=== PATIENT | female | born 1965 | race Caucasian/White ===

== ENCOUNTER 2016-11-07 05:45 | Inpatient (IN) | payer OTHER ==
[~2016-11-07] VITALS: Ht 160 cm; Wt 109.9 kg
[~2016-11-07 05:45] MED LIST: ADVIL,NUPRIN,M200 MG PO; ASPIR 8181 M1 PO; BACTRIM,SEPT1 TABLET PO; BISAC-EVAC10 MG PR; CELEBREX50 MG PO; CLOTRIMAZOLE15 GM TP; COUMADIN1 MG PO; COZAAR50 MG PO; CYCLOBENZAPRINE5 MG PO; DELTASONE20 M1 PO; EFFEXOR XR150 MG PO; GUAIFENESIN AC473 ML PO; HYCODAN SYRUP480 ML PO; IRON325 M1 PO; KEFLEX500 MG PO; LEVOFLOXACIN750 MG PO; LIPITOR20 MG PO; LOPRESSOR50 MG PO; MOTRIN600 MG PO; NAPROSYN500 MG PO; OXYCODONE HCL5 MG PO; OXYCONTIN10 MG PO; PREDNISONE20 MG PO; PROAIR HFA8.5 GM IH; ROBAXIN500 MG PO; ROXICODONE5 MG PO; TAMIFLU75 MG PO; TESSALON PERLE100 MG PO; TESSALON200 MG PO; TRIAMCINOLONE A15 GM TP; ULTRAM ER200 MG PO; ULTRAM50 MG PO; VALACYCLOVIR500 MG PO; VANCOMYCIN1.25 GM/25 IV; VENLAFAXINE HC150 MG PO; VENTOLIN HFA18 GM IH; ZITHROMAX Z-PA250 MG PO; ZOLOFT100 MG PO
[2016-11-07 06:45] VITALS: BP 135/63
[2016-11-07 10:58] VITALS: BP 117/67
[2016-11-07 15:59] VITALS: BP 132/77
[2016-11-07 18:24] LABS: HEMATOCRIT 43.9 % (36.0-46.0); MCV 91.8 FL (83-99)
[2016-11-07 19:53] VITALS: BP 142/70
[2016-11-07 23:54] VITALS: BP 144/50
[2016-11-08 03:53] VITALS: BP 130/70
[2016-11-08 05:40] LABS: ANION GAP 8 MEQ/L (2-14); CHLORIDE 102 MEQ/L (99-109); GFR ESTIMATE (CALCULATED) > 59 mL/min/; GLUCOSE 160 mg/dL (70-99); POTASSIUM 3.8 MEQ/L (3.7-5.4); SAMPLE HEMOLYSIS CHECK 0; SAMPLE ICTERIC CHECK 0; SAMPLE LIPEMIA CHECK 0; SODIUM 138 MEQ/L (136-147); UREA NITROGEN (BUN) 23 mg/dL (9-23)
[2016-11-08 08:06] VITALS: BP 141/79
[2016-11-08 11:35] VITALS: BP 122/64
[2016-11-08 15:34] VITALS: BP 130/67
[2016-11-08 19:59] VITALS: BP 153/76
[2016-11-08 23:48] VITALS: BP 138/75
[2016-11-09 03:40] VITALS: BP 159/73
[2016-11-09 08:09] VITALS: BP 160/70
[2016-11-09] MEDS ORDERED: OXYCODONE HCL5 MG PO (08:57)
[2016-11-09] MEDS ORDERED: XARELTO10 MG PO (08:57)
[2016-11-09 11:29] VITALS: BP 151/82
[2016-11-09 12:04] LABS: HEMATOCRIT 40.9 % (36.0-46.0); MCV 89.7 FL (83-99)
== END 2016-11-09 15:15 | DRG 470 ==
LOC: 2SOUTH 05:45 → 3WEST 10:30 → 2SOUTH 14:56 → 3WEST 11-09 15:15
PROVIDERS: Orthopaedic Surgery; Physician Assistant Surgical
PROC: 0SRD0J9 Replacement of Left Knee Joint with Synthetic Substitute, Cemented, Open Approach (ICD-10-PCS; principal; 2016-11-07)
DX: M17.12 Unilateral primary osteoarthritis, left knee (principal); Z96.651 Presence of right artificial knee joint; Z87.891 Personal history of nicotine dependence; E78.5 Hyperlipidemia, unspecified; J45.909 Unspecified asthma, uncomplicated; I10 Essential (primary) hypertension
CPT/HCPCS: 80048; 85014; 85018; 94640; 94640 76; 99202; C1713; J0690; J1885; J2250; J2405; J7050; J7120; L1820; S0020

== ENCOUNTER → 2016-11-12 | Outpatient (CLI) | payer OTHER ==
[~2016-11-12] MED LIST changes: +XARELTO10 MG PO
== END | disposition home or self-care (01) ==
LOC: RAD 15:49
DX: R22.42 Localized swelling, mass and lump, left lower limb (principal); S70.12XA Contusion of left thigh, initial encounter; Z98.890 Other specified postprocedural states; Z96.652 Presence of left artificial knee joint
CPT/HCPCS: 93971

== ENCOUNTER 2016-12-15 20:33 | Emergency (ER) | payer OTHER ==
[~2016-12-15] VITALS: Ht 160 cm; Wt 106.7 kg
[2016-12-16 00:16] LABS: INFLUENZA A VIRAL ANTIGEN NEGATIVE; INFLUENZA B VIRAL ANTIGEN NEGATIVE
[2016-12-16] MEDS ORDERED: TORADOL10 MG PO (00:21)
[2016-12-16] MEDS ORDERED: REGLAN10 MG PO (00:21)
[2016-12-16 00:30] VITALS: BP 114/76
== END 2016-12-16 01:32 | disposition home or self-care (01) ==
LOC: EME 20:33 → EXP 20:33
PROVIDERS: Physician Assistant
DX: G43.909 Migraine, unspecified, not intractable, without status migrainosus (principal)
CPT/HCPCS: 87502; 99281; 99284; J1885

== ENCOUNTER 2017-01-21 21:30 | Emergency (ER) | payer OTHER ==
[~2017-01-21] VITALS: Ht 160 cm; Wt 110.9 kg
[~2017-01-21 21:30] MED LIST changes: +REGLAN10 MG PO; +TORADOL10 MG PO
[2017-01-21] MEDS ORDERED: NAPROSYN500 MG PO (22:48)
[2017-01-21 23:30] VITALS: BP 124/88
== END 2017-01-21 23:32 | disposition home or self-care (01) ==
LOC: EME 21:30 → RME 21:30
DX: G43.909 Migraine, unspecified, not intractable, without status migrainosus (principal); I10 Essential (primary) hypertension; S46.911A Strain of unspecified muscle, fascia and tendon at shoulder and upper arm level, right arm, initial encounter; X58.XXXA Exposure to other specified factors, initial encounter; E78.5 Hyperlipidemia, unspecified; F17.200 Nicotine dependence, unspecified, uncomplicated
CPT/HCPCS: 99281; 99284; J1200; J1885; J2765; J7030

== ENCOUNTER 2017-02-25 04:05 | Emergency (ER) | payer OTHER ==
[~2017-02-25] VITALS: Ht 160 cm; Wt 116.1 kg
[2017-02-25 05:39] LABS: HEMATOCRIT 43.8 % (36.0-46.0); MCH 28.7 PG (29.0-34.0); MCHC 32.2 G/DL (30.0-36.0); MCV 89.2 FL (83-99); MEAN PLAT.VOLUME 11.6 uM^3 (9.5-12.4); PLATELET COUNT 227 K/uL (156-360); RBC DIS.WIDTH-CV 14.5 % (11.8-14.6); RBC DIS.WIDTH-SD 46.6 % (39-53); RED BLOOD COUNT 4.91 M/uL (3.80-5.20); WHITE BLOOD COUNT 9.3 K/uL (4.1-10.2)
[2017-02-25 05:40] LABS: CHLORIDE 105 mEq/L (99-109); POTASSIUM 3.5 mEq/L (3.7-5.4); SODIUM 140 mEq/L (136-147)
[2017-02-25 05:42] LABS: GLUCOSE 114 mg/dL (70-99)
[2017-02-25 05:44] LABS: ANION GAP 11 MEQ/L (2-14)
[2017-02-25 05:46] LABS: GFR ESTIMATE (CALCULATED) > 59 mL/min/
[2017-02-25 05:47] LABS: UREA NITROGEN (BUN) 17 mg/dL (9-23)
[2017-02-25 05:53] LABS: PROTHROMBIN TIME 10.1 (9.2-11.2)
[2017-02-25] MEDS ORDERED: VENTOLIN HFA18 GM IH (06:19)
[2017-02-25] MEDS ORDERED: BACTRIM,SEPT1 TABLET PO (06:19)
[2017-02-25 06:49] VITALS: BP 132/88
== END 2017-02-25 06:50 | disposition home or self-care (01) ==
LOC: EME 04:05
PROVIDERS: Emergency Medicine
DX: J20.9 Acute bronchitis, unspecified (principal); L03.116 Cellulitis of left lower limb; E78.5 Hyperlipidemia, unspecified; F17.200 Nicotine dependence, unspecified, uncomplicated; Z96.652 Presence of left artificial knee joint; Z88.6 Allergy status to analgesic agent
CPT/HCPCS: 71020; 80048; 85027; 85610; 85730; 93005; 93971; 94640; 99281; 99284

== ENCOUNTER 2017-05-12 01:53 | Emergency (ER) | payer OTHER ==
[~2017-05-12] VITALS: Ht 160 cm; Wt 117.2 kg
[2017-05-12] MEDS ORDERED: PERCOCET 5/31 TABLET PO (02:51)
[2017-05-12] MEDS ORDERED: PREDNISONE20 MG PO (02:51)
[2017-05-12] MEDS ORDERED: FLEXERIL10 MG PO (02:51)
[2017-05-12 03:14] VITALS: BP 138/98
== END 2017-05-12 03:16 | disposition home or self-care (01) ==
LOC: EME 01:53
DX: S39.012A Strain of muscle, fascia and tendon of lower back, initial encounter (principal); X58.XXXA Exposure to other specified factors, initial encounter; J45.901 Unspecified asthma with (acute) exacerbation; L25.9 Unspecified contact dermatitis, unspecified cause
CPT/HCPCS: 94640; 99281; 99283; J7512

== ENCOUNTER 2017-08-20 08:21 | Emergency (ER) | payer OTHER ==
[~2017-08-20] VITALS: Ht 160 cm; Wt 115.2 kg
[~2017-08-20 08:21] MED LIST changes: +FLEXERIL10 MG PO; +PERCOCET 5/31 TABLET PO
[2017-08-20 08:28] VITALS: BP 143/80
[2017-08-20] MEDS ORDERED: KENALOG,ARISTOC80 GM TP (08:53)
== END 2017-08-20 09:06 | disposition home or self-care (01) ==
LOC: EME 08:21
DX: L73.9 Follicular disorder, unspecified (principal); L30.9 Dermatitis, unspecified; L03.116 Cellulitis of left lower limb; Z79.2 Long term (current) use of antibiotics
CPT/HCPCS: 99281; 99284; J0696

== ENCOUNTER 2017-11-06 19:21 | Emergency (ER) | payer OTHER ==
[~2017-11-06] VITALS: Ht 160 cm; Wt 114.2 kg
[~2017-11-06 19:21] MED LIST changes: +AQUAPHOR OINTM105 GM TP; +ATARAX,VISTARIL50 MG PO; +KENALOG,ARISTOC80 GM TP
[2017-11-06 20:19] LABS: HEMATOCRIT 49.6 % (36.0-46.0); HEMOGLOBIN 16.8 G/DL (11.9-15.5); MCH 30.2 PG (29.0-34.0); MCHC 33.9 G/DL (30.0-36.0); RBC DIS.WIDTH-CV 14.9 % (11.8-14.6); RBC DIS.WIDTH-SD 48.7 % (39-53); RED BLOOD COUNT 5.57 M/uL (3.80-5.20); WHITE BLOOD COUNT 12.9 K/uL (4.1-10.2)
[2017-11-06 20:30] LABS: CHLORIDE 107 mEq/L (99-109); SODIUM 140 mEq/L (136-147)
[2017-11-06 20:31] LABS: GLUCOSE 96 mg/dL (70-99)
[2017-11-06 20:35] LABS: CREATININE 0.7 mg/dL (0.6-1.3); GFR ESTIMATE (CALCULATED) > 59 mL/min/
[2017-11-06 20:36] LABS: UREA NITROGEN (BUN) 13 mg/dL (9-23)
[2017-11-06 21:13] LABS: PLAT.SUFFICIENCY ADEQUATE; PLATELET CLUMPS PRESENT - PLATELET COUNT APPEARS ADQ.; PLATELET COUNT UNABLE TO REPORT K/uL (156-360)
[2017-11-07] MEDS ORDERED: NEBULIZER MC (01:18)
[2017-11-07] MEDS ORDERED: PREDNISONE20 MG PO (01:18)
[2017-11-07] MEDS ORDERED: PROVENTIL,2.5 MG/3 M IH (01:19)
[2017-11-07] MEDS ORDERED: ZITHROMAX250 MG PO (01:21)
[2017-11-07 01:54] VITALS: BP 130/75
== END 2017-11-07 01:54 | disposition home or self-care (01) ==
LOC: RME 19:21 → EME 19:21 → RME 11-07 01:54
DX: J45.901 Unspecified asthma with (acute) exacerbation (principal); F17.200 Nicotine dependence, unspecified, uncomplicated; E78.5 Hyperlipidemia, unspecified; F32.9 Major depressive disorder, single episode, unspecified; Z88.5 Allergy status to narcotic agent
CPT/HCPCS: 71046; 80048; 85027; 94640; 94640 76; 99281; 99285; J7512

== ENCOUNTER 2018-01-13 23:54 | Emergency (ER) | payer OTHER ==
[~2018-01-13] VITALS: Ht 160 cm; Wt 118.8 kg
[~2018-01-13 23:54] MED LIST changes: +NEBULIZER MC; +PROVENTIL,2.5 MG/3 M IH; +ZITHROMAX250 MG PO
[2018-01-14] MEDS ORDERED: ATARAX,VISTARIL50 MG PO (00:52)
[2018-01-14] MEDS ORDERED: PEPCID20 MG PO (00:52)
[2018-01-14 01:17] VITALS: BP 126/84
== END 2018-01-14 01:28 | disposition home or self-care (01) ==
LOC: EME 23:54
DX: L25.9 Unspecified contact dermatitis, unspecified cause (principal); I89.0 Lymphedema, not elsewhere classified; F17.200 Nicotine dependence, unspecified, uncomplicated
CPT/HCPCS: 99281; 99284; J1100; Q0177

== ENCOUNTER 2018-01-30 04:20 | Emergency (ER) | payer OTHER ==
[~2018-01-30] VITALS: Ht 160 cm; Wt 120.3 kg
[~2018-01-30 04:20] MED LIST changes: +PEPCID20 MG PO
[2018-01-30 04:40] LABS: HEMATOCRIT 44.4 % (36.0-46.0); HEMOGLOBIN 14.9 G/DL (11.9-15.5); MCH 30.3 PG (29.0-34.0); MCHC 33.6 G/DL (30.0-36.0); MCV 90.4 FL (83-99); RBC DIS.WIDTH-CV 14.7 % (11.8-14.6); RBC DIS.WIDTH-SD 48.4 % (39-53); RED BLOOD COUNT 4.91 M/uL (3.80-5.20)
[2018-01-30 04:53] LABS: CHLORIDE 106 mEq/L (99-109); POTASSIUM 3.5 mEq/L (3.7-5.4); SODIUM 141 mEq/L (136-147)
[2018-01-30 04:55] LABS: GLUCOSE 125 mg/dL (70-99)
[2018-01-30 04:59] LABS: CREATININE 0.6 mg/dL (0.6-1.3); GFR ESTIMATE (CALCULATED) > 59 mL/min/
[2018-01-30 05:00] LABS: UREA NITROGEN (BUN) 8 mg/dL (9-23)
[2018-01-30 05:39] LABS: PLAT.SUFFICIENCY ADEQUATE; PLATELET COUNT 218 K/uL (156-360)
[2018-01-30] MEDS ORDERED: DOXYCYCLINE HY100 MG PO (08:55)
[2018-01-30 09:11] VITALS: BP 142/90
== END 2018-01-30 09:13 | disposition home or self-care (01) ==
LOC: EME 04:20
DX: J20.9 Acute bronchitis, unspecified (principal); J45.909 Unspecified asthma, uncomplicated; E78.5 Hyperlipidemia, unspecified; F32.9 Major depressive disorder, single episode, unspecified; I89.0 Lymphedema, not elsewhere classified; Z88.5 Allergy status to narcotic agent; F17.200 Nicotine dependence, unspecified, uncomplicated
CPT/HCPCS: 71046; 80048; 85027; 94640; 99281; 99284